=== PATIENT | female | born 1995 | race Caucasian/White ===

== ENCOUNTER 2022-12-01 10:14 | Inpatient (IN) ==
--- NOTE | 2022-12-01 11:36 | History & Physical Report ---
Date of Service December 01, 2022 Assessment & Plan (1) Uterine contractions during : (2) Genital HSV: Plan - Patient admitted to labor and delivery for regular contractions and to rule out/in labor - Patient was evaluated in office this morning and found to be 4/90/-[address] Guerrero - Patient endorses continued contractions at 4 minutes apart w/o loss of fluid - Plan for speculum exam and monitoring to evaluate for labor, will admit if found to be in labor - BP 140/95, continue to monitor - Patient willing to consider augmentation and ROM as indicated - Patient requesting epidural anesthesia for pain management - Labs pending History of Present Illness Chief Complaint: Contractions, ROL Primary Care Provider: Liz Dwyer Subjective: Tanesha is a 27 year old female currently at 40 2 with MALISSA 11/29/22 determined by US who is presenting to L&D for contractions and rule in/out of labor. Complications: Hx of Genital Herpes (started Valtrex @ 36 weeks) Reason for Induction/: Post-date induction schedule 12/08/22 Movement: Yes Fluid Loss/ROM: No Bloody show/discharge: Light bloody discharge since cervix check in office this AM Contractions: Started @ midnight 8-10 min apart, currently 4 minutes apart (per patient) External FHT and uterine monitor: Category 1, tracing reactive, good FHT variability (acels w/o dcels), regular contractions Last OB appointment: 12/01, regular care [employer] Hx: No hx of abnormal paps, Hx of genital herpes (on Valacyclovir) - no current sx (no rash, redness, burning, or itching) Labs: Blood Type: A+ Antibody Screen: Negative Hg/Hct (today): Pending WBC/Plt (today): Pending Rubella: Immune RPR: Non-reactive Gonorrhea: Negative Chlamydia: Negative HIV: Negative HbSAg: Negative GBS: Negative ROS: - Denies fever, chills, sweats - Denies dyspnea or pleuritic pain - Denies chest pain, palpitations, or pressure - Denies breast pain - Denies dysuria - Denies headache or visual changes Allergies Allergy/AdvReac Type Severity Reaction Status Date / Time No Known Allergies Allergy Verified 12/01/22 09:50 Home Medications Medication Instructions Recorded Confirmed Type prenat.vits,jd,jps-dzmz-spool 1 tab PO DAILY 03/21/20 12/01/22 History albuterol sulfate 90 mcg/actuation 1 inh inhalation QID PRN SHORT OF 12/31/21 12/01/22 History aerosol inhaler (Ventolin HFA) BREATH valacyclovir 500 mg tablet 500 mg PO BID #60 tabs 10/21/22 12/01/22 Rx (Valtrex) Patient History Medical History (Updated 12/01/22 @ 11:32 by Bere Morocho, DO) Asthma No inhaler x years Genital HSV Hx Hx of ovarian cyst Miscarriage Surgical History (Updated 04/25/22 @ 10:56 by Jazmín Lira) S/P dilation and curettage [place] teeth removed Family History Other No family history of adverse response to anesthesia Denies family history of Ovarian cancer Breast cancer Colorectal cancer Social History (Updated 04/25/22 @ 10:52 by Jazmín Lira) Smoking Status: Never smoker Second Hand Exposure: No; Hx Alcohol Use: No Hx Substance Use: No Preferred Language: Persian Media Services Director Required: No Beliefs That Will Affect Care: Faith Faith Beliefs: uatsdin marital status: marital status details: Darrell Piedra ([phone] Current Living Situation: Spouse and Family Current Living Situation Comment: darrell- step sons-14 and 11 yo current occupational status: employed 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 No acute distress. Cardiac: Regular rate and rhythm, no murmurs/rubs/gallops. Respiratory: Clear to auscultation bilaterally a/p, no wheezes/rales/rhonchi. No increased work of breathing. Symmetrical chest rise. No respiratory distress. Abdomen: Gravid; reactive FHTs; Position: Vertex by Livan maneuver Pelvic: ERIN -[address] Guerrero Lower Extremities: No lower extremity edema or swelling. No deep calf pain. Susan's negative bilaterally. Results & Data ([facility]) Vital Signs (Past 12 Hours) Vital Signs Pulse BP 12/01/22 11:09 106 H 140/95 Supervising Physician Co-Signing Physician Notes Resident Physician Supervision Note: I interviewed and examined the patient. Discussed with Dr. Morocho and agree with findings and plan as documented in the note. Any exceptions or clarifications are listed here: 27 yo at 40 2/7 wga presents in early labor. Seen in office and 4cm, uncomfortable. Notes ctx are worse and more painful now. Denies s/s HSV outbreak, only had one ever and was in 2019 but denies itching, burning, pain. Mildly elevated BPs but very uncomfortable. SSE w/o HSV lesions on vulva, vagina, cervix. SVE 5/90/-2, cephalic. Will admit for labor, GBS neg, desires epidural Documented By: Sima Reinoso MD Resident Activity Tracking Resident Involvement: Resident Care Provided Care Provided: OB Delivery
[2022-12-01] MEDS ORDERED: OXYTOCIN 30 UNITS/500 ML BAG IV PRN ×2 (11:59→18:04)
[2022-12-01] MEDS ORDERED: LIDOCAINE 1% LOCAL 20 ML VIAL INFIL PRN (11:59)
[2022-12-01] MEDS: LACTATED RINGER'S 1,000 ML IV PRN ×2 (12:25→13:29)
[2022-12-01] MEDS ORDERED: fentaNYL citrate 100 MCG/2 ML VIAL ONE (12:37)
[2022-12-01] MEDS ORDERED: SODIUM CHLORIDE 0.9% INJ 10 ML VIAL ONE (12:37)
[2022-12-01] MEDS ORDERED: ePHEDrine sulfate 50 MG/ML AMP ONE (12:37)
[2022-12-01] MEDS ORDERED: BUPIVACAINE 0.25% 30 ML VIAL ONE (12:37)
[2022-12-01] MEDS ORDERED: LIDOCAINE 2%/EPINEPHRINE 1:200,000 20 ML SDV ONE ×2 (12:37→15:46)
[2022-12-01] MEDS ORDERED: fentaNYL 2MCG/ML ROPIVACAINE 1.25MG/ML 100 ML BAG EPI ONE (12:38)
[2022-12-01 12:40] LABS: Hematocrit (blood only) 40.4 % (37.0-47.0); Hemoglobin 14.1 g/dl (12.0-16.0); Mean Corpuscular Hemoglobin 31.4 pg (25.0-34.0); Mean Corpuscular Hgb Conc 34.9 g/dL (32.0-36.0); Mean Platelet Volume 11.1 fL (9.4-12.4); Platelet Count 215 K/uL (130-400); RDW Coefficient of Variation 14.4 % (11.5-14.5); RDW Standard Deviation 47.7 fL (36.4-46.3); Red Blood Count 4.49 M/uL (4.20-5.40); White Blood Count 10.48 K/ul (4.8-10.8)
[2022-12-01] MEDS ORDERED: ONDANSETRON INJ 2 MG/ML 2 ML VIAL IV PRN (12:43)
[2022-12-01] MEDS ORDERED: diphenhydrAMINE 50 MG/ML VIAL IV PRN (12:43)
[2022-12-01] MEDS ORDERED: NALOXONE HCL 1 MG in SODIUM CHLORIDE 0.9% 1000ML 1,000 ML IV PRN (12:43)
[2022-12-01] MEDS ORDERED: NALBUPHINE HCL INJ 10 MG/ML AMP IV PRN (12:43)
[2022-12-01] MEDS ORDERED: PROMETHAZINE HCL 25 MG in SODIUM CHLORIDE 0.9% 50 ML IV PRN (12:43)
[2022-12-01] MEDS ORDERED: METOCLOPRAMIDE HCL 20 MG in SODIUM CHLORIDE 0.9% 50 ML IV PRN (12:43)
[2022-12-01] MEDS ORDERED: ePHEDrine sulfate 50 MG/ML AMP IV PRN (12:43)
[2022-12-01] MEDS ORDERED: NALOXONE HCL 0.4 MG/1 ML VIAL/CARP IV PRN (12:43)
--- NOTE | 2022-12-01 12:43 | Anesthesiology Consultation ---
Date of Service December 01, 2022 Assessment & Plan Chart Review Chart Review: Acceptable Risk for Labor Epidural Consults Requested none ASA ASA2 Proposed Anesthesia Anesthesia Type: Labor Epidural Risk / Benefits Reviewed With: PT / POA / Parent / Guardian, Accepts Plan and Informed Consent Obtained History Height/Weight Height: 5 ft 3 in Weight: 76.839 kg Allergies Allergy/AdvReac Type Severity Reaction Status Date / Time No Known Allergies Allergy Verified 12/01/22 09:50 Medications Home Medications Medication Instructions Recorded Confirmed Last Taken prenat.vits,jd,omj-paat-saflh 1 tab PO DAILY 03/21/20 12/01/22 12/01/22 08:00 albuterol sulfate 90 mcg/actuation 1 inh inhalation QID PRN SHORT OF 12/31/21 12/01/22 Unknown aerosol inhaler (Ventolin HFA) BREATH valacyclovir 500 mg tablet 500 mg PO BID #60 tabs 10/21/22 12/01/22 12/01/22 08:00 (Valtrex) Active Medications Generic Name Dose Route Start Last Admin Trade Name Freq PRN Reason Stop Dose Admin Lactated Ringer's 1,000 mls @ 125 mls/hr 12/01/22 11:59 12/01/22 12:25 Lr IV 12/03/22 11:58 999 mls/hr .Q8H PRN Administration L&D Protocol Protocol NPO Date Last Intake of Fluids: 12/01/22 Time Last Intake of Fluids: 11:00 Date Last Intake of Solids: 12/01/22 Time Last Intake of Solids: 09:00 Past Medical History Medical History Asthma No inhaler x years Genital HSV Hx Hx of ovarian cyst Miscarriage Exercise / Class Metabolic Activity II 4-5 Yardwork/Stairs/Walk up hill Past Family History Family History Other No family history of adverse response to anesthesia Denies family history of Ovarian cancer Breast cancer Colorectal cancer Past Surgical History Surgical History S/P dilation and curettage [place] teeth removed Past Anesthesia History No Hx of Anesthesia Complications and No Family Hx of Anesthesia Complications History of PONV No Hx of PONV and No Hx of Motion Sickness Social History Smoking Status: Never smoker Hx Alcohol Use: No Hx Substance Use: No substance use type: does not use Physical Exam Vital Signs Last Vital Signs Temp 36.9 C 12/01/22 11:36 Pulse 95 H 12/01/22 11:37 Resp 18 12/01/22 11:36 BP 132/92 12/01/22 11:37 ENMT Mouth: no TMJ abnormality Thyromental Distance: > or= 3.5 Finger Breadths Mallampati Class: II Neck normal visual inspection and trachea midline; neck extension not limited Respiratory normal respiratory effort Auscultation: lungs clear to auscultation bilaterally Cardiovascular Rate/Rhythm: regular rate and regular rhythm Heart Sounds: no murmur Musculoskeletal Spine: normal cervical ROM Extremities: full ROM of extremities Neurologic moves all extremities Psychiatric Orientation: alert and oriented x 3 Testing Laboratory Results 12/01/22 12:17
[2022-12-01 13:07] LABS: Albumin Level 3.7 gm/dl (3.4-5.0); Bilirubin,Total 0.5 mg/dl (0.2-1.0); Calcium 9.5 mg/dl (8.5-10.1); Potassium 3.9 mmol/L (3.5-5.1)
[2022-12-01] MEDS: fentaNYL 2MCG/ML ROPIVACAINE 1.25MG/ML 100 ML BAG EPI PRN ×2 (13:10→16:37)
[2022-12-01 13:13] LABS: Albumin Globulin Ratio 1.2 (0.9-2); BUN Creatinine Ratio 15.5 (10-20); Creatinine Clr Calc Pharmacy 141.7 ml/min; Est GFR (African American) 145.4 ml/min; Est GFR (Non-African American) 125.4 ml/min; Total Protein 6.7 gm/dl (6.0-8.3)
[2022-12-01] MEDS ORDERED: LIDOCAINE 2% LOCAL 20 ML VIAL ONE (15:45)
[2022-12-01] MEDS ORDERED: Nursing to Pharmacy Communication SCH ×3 (16:00)
[2022-12-01] MEDS ORDERED: ceFAZolin 2000MG 2,000 MG/15 ML SYR IV STA (17:37)
--- NOTE | 2022-12-01 18:01 | Delivery Summary ---
Vaginal Delivery Summary Date of Service December 01, 2022 Vaginal Delivery Summary and 2nd Degree LAC PREOPERATIVE DIAGNOSIS: 1. Single intrauterine at 40 2/7 wga 2. Labor 3. Hx HSV POSTOPERATIVE DIAGNOSIS: 1. Single intrauterine at 40 2/7 wga 2. Labor 3. Hx HSV 4. Delivered PROCEDURE: 1. Normal spontaneous vaginal delivery. 2. Manual extraction of placenta SURGEON: Sima Reinoso MD ANESTHESIA: Epidural. ESTIMATED BLOOD LOSS: 300 mL FLUIDS: Continuous LR. URINE OUTPUT: None. COMPLICATIONS: Retained placenta CONDITION: Stable. INDICATIONS: 27 yo at 40 2/7 wga presented this morning with contractions increasing in frequency and intensity. She was found to be 4cm in the office and sent to L&D. She continued to progress and was admitted after negative speculum exam confirming no lesions. She received an epidural for pain control and underwent AROM. She progressed to complete and desired to push. FINDINGS: A viable female , weight pending with Apgars of 8 and 9 at 1 and 5 minutes respectively. SPECIMEN: Cord blood, placenta OPERATIVE REPORT: The patient progressed to 10 cm, 100% effaced and +2 station, pushed over intact perineum with anesthesia to deliver a viable female infant, weight and Apgars as above. Head of delivered in RACHEL position. No nuchal cord was present. Body and shoulders were delivered without difficulty. was delivered to maternal abdomen and nursing staff. Delayed cord clamping was performed for 60 seconds. Cord was clamped and cut. Cord blood was obtained. Umbilical cord was noted to be thin and from the membranes with gentle traction and so did require manual extraction. Placenta was extracted intact with 3-vessel cord. Additional sweep confirmed no remaining products. A dose of ancef was given. IV oxytocin and fundal massage were given for excellent hemostasis. Vagina, cervix, perineum, and placenta were inspected. A second degree laceration was noted and repaired using 3-0 vicryl and made hemostatic. A hemostatic periclitoral abrasion was noted and not needed to be repaired. There was excellent hemostasis. Sponge and needle counts correct x2. No sponges were left behind. Mother and stable in immediate period. [facility] [place]aginal Delivery Charge Vaginal Delivery Codes: 71846 global code for the antepartum, delivery, and post- Delivery Type Details: and 2nd Degree LAC
[2022-12-01] MEDS ORDERED: HYDROCORTISONE ACETATE 25 MG SUPP PR PRN (18:04)
[2022-12-01] MEDS ORDERED: BENZOCAINE 20% AER SPR 82.5 GM CAN EXT PRN (18:04)
[2022-12-01] MEDS ORDERED: ACETAMINOPHEN 325 MG TAB PO PRN (18:04)
[2022-12-01] MEDS ORDERED: ALBUTEROL HFA 8 GM INHALER INH PRN (18:04)
[2022-12-01] MEDS ORDERED: DIPHTHERIA/TETANUS/PERTUSSIS 0.5mL SYR/VIAL (Age 7+yrs) IM ONE (18:04)
[2022-12-01] MEDS ORDERED: bisacodyL 10 MG SUPP PR PRN (18:04)
--- NOTE | 2022-12-01 18:44 | Anesthesia Procedure Note ---
Date of Service December 01, 2022 Anesthesia Post Epidural Note Vital Signs Vital Signs: Temp Pulse Resp BP Pulse Ox 36.9 C 96 H 18 144/87 H 92 12/01/22 11:36 12/01/22 18:42 12/01/22 18:30 12/01/22 18:42 12/01/22 17:14 Notes Mental Status: alert / awake / arousable and participated in evaluation Nausea / Vomiting: adequately controlled Pain: adequately controlled Airway Patency, RR, SpO2: stable & adequate BP & HR: stable & adequate Hydration State: stable & adequate Neuraxial Anesthesia: was administered and sensory block is resolving Anesthetic Complications: no major complications apparent Epidural: Removed without complications and With tip intact
[2022-12-01] MEDS: IBUPROFEN 600 MG TAB PO PRN (19:51)
[2022-12-01] MEDS: DOCUSATE SODIUM 100 MG CAP PO SCH (22:07)
[2022-12-02] MEDS: IBUPROFEN 600 MG TAB PO PRN ×5 (00:07→18:05)
--- NOTE | 2022-12-02 05:03 | Obstetrical Progress Note ---
Date of Service December 02, 2022 Assessment & Plan (1) care following vaginal delivery: (2) Genital HSV: Plan - Overall, feeling well and eating well today - Infant feeding going well without concern - Urinating and passing gas appropriately - Ambulating well in room - Pain controlled w/ Ibuprofen - Hgb 14.1 on 12/01 - Vitals stable and wnl (BP elevated during labor, trending down) - Routine PP care progressing well - Anticipate discharge @ 24-48 hours PP - Recommending f/u outpatient in 6 weeks Admission and Anticipated Discharge Date Admission Date: December 01, 2022 Supervising Physician Co-Signing Physician Notes Resident Physician Supervision Note: I interviewed and examined the patient. Discussed with Dr. Morocho and agree with findings and plan as documented in the note. Any exceptions or clarifications are listed here: PP1 s/p , doing well. BPs were mild range during labor but suspect pain related, had normal labs. BPs improved pp, will continue to monitor. VSS, exam benign and reassuring. Continue routine pp care Documented By: Sima Reinoso MD Subjective Patient is a 27F who is PPD #1 following delivery at 40 2/. She reports feeling well overall this morning. - Ambulation - well throughout room - Voiding/[place] - independent voids, no dysuria or pressure - Gas/Stool - passing gas, no bowel movement - Diet - regular, no nausea or emesis - Lochia - diminishing, heavy amount (when standing) - Feeding Type - breast feeding - Pain Level - 1/10, controlled with Ibuprofen Review of Systems - Denies fever, chills, sweats - Denies shortness of breath, difficulty breathing, chest pain, palpitations, chest pressure. - Denies breast pain. - Denies dysuria. - Denies headache or changes in vision. Physical Exam Physical Exam: General: Alert, oriented. No acute distress. Cardiac: RRR, normal S1/S2, no murmurs/rubs/gallops. Respiratory: Non-labored, CTAB, no wheezes/rales/rhonchi. Symmetric chest rise. Abdomen: Soft, nontender, nondistended. Bowel sounds present. Uterus: Uterine fundus firm, palpable 2 cm below umbilicus. Lower Extremities: No lower extremity edema or swelling. No deep calf pain. Susan's negative bilaterally. Results & Data ([facility]) Vital Signs (Past 12 Hours) Vital Signs Temp Pulse Pulse Resp BP BP Pulse Ox 12/02/22 04:18 36.5 C 78 16 122/73 98 12/02/22 00:20 36.6 C 85 18 137/92 98 12/01/22 20:30 37 C 96 H 16 135/76 98 12/01/22 19:57 36.7 C 18 12/01/22 19:15 36.7 C 18 12/01/22 18:30 18 12/01/22 18:15 18 12/01/22 18:00 18 12/01/22 17:41 18 12/01/22 19:57 99 H 144/91 H 12/01/22 19:52 90 144/87 H 12/01/22 19:47 104 H 143/95 H 12/01/22 19:42 104 H 143/96 H 12/01/22 19:26 88 140/88 12/01/22 19:12 95 H 137/88 12/01/22 18:56 99 H 147/85 H 12/01/22 18:42 96 H 144/87 H 12/01/22 18:27 105 H 161/89 H 12/01/22 18:12 110 H 133/67 12/01/22 18:00 114 H 144/75 H 12/01/22 17:41 100 H 140/75 12/01/22 17:27 111 H 135/74 12/01/22 17:14 160 H 92 12/01/22 17:12 164 H 125/92 12/01/22 17:11 161 H 94 12/01/22 17:07 139 H 90 12/01/22 17:06 141 H 97 O2 Del Method 12/02/22 04:18 Room Air 12/02/22 00:20 Room Air 12/01/22 20:30 Room Air 12/01/22 19:57 12/01/22 19:15 12/01/22 18:30 12/01/22 18:15 12/01/22 18:00 12/01/22 17:41 12/01/22 19:57 12/01/22 19:52 12/01/22 19:47 12/01/22 19:42 12/01/22 19:26 12/01/22 19:12 12/01/22 18:56 12/01/22 18:42 12/01/22 18:27 12/01/22 18:12 12/01/22 18:00 12/01/22 17:41 12/01/22 17:27 12/01/22 17:14 12/01/22 17:12 12/01/22 17:11 12/01/22 17:07 12/01/22 17:06 Resident Activity Tracking Resident Involvement: Resident Care Provided Care Provided: OB Delivery
[2022-12-02] MEDS: DOCUSATE SODIUM 100 MG CAP PO SCH ×2 (08:26→20:19)
[2022-12-02] MEDS: PRENATAL VITAMIN 1 TAB PO SCH (08:26)
[2022-12-02] MEDS ORDERED: bisacodyL 5 MG TABEC PO SCH (20:00)
[2022-12-03] MEDS: IBUPROFEN 600 MG TAB PO PRN ×3 (03:39→12:00)
--- NOTE | 2022-12-03 05:51 | Obstetrical Progress Note ---
Date of Service December 03, 2022 Assessment & Plan (1) care following vaginal delivery: (2) Genital HSV: Plan - Overall, feeling well and eating well today - Infant feeding going well without concern - Urinating and passing gas appropriately - Ambulating well in room - Pain controlled w/ Ibuprofen - Hgb 14.1 on 12/01 - Vitals stable (BP 140s/80s, occasional wnl), BP check in 1 week - Routine PP care progressing well - Anticipate discharge @ 24-48 hours PP - Recommending f/u outpatient in 6 weeks Admission and Anticipated Discharge Date Admission Date: December 01, 2022 Supervising Physician Co-Signing Physician Notes Resident Physician Supervision Note: I interviewed and examined the patient. Discussed with Dr. Morocho and agree with findings and plan as documented in the note. Any exceptions or clarifications are listed here: Doing well. ready for d/c. Has had several 140s/80-low 90s blood pressures. NO s/s pet. Instructions given. Will have a f/u bp check in one week in the office. Documented By: Maggie Guerrero MD, FACOG Subjective Patient is a 27F who is PPD #2 following delivery at 40 2. She reports feeling well overall this morning. - Ambulation - well throughout room - Voiding/[place] - independent voids, no dysuria or pressure - Gas/Stool - passing gas, no bowel movement - Diet - regular, no nausea or emesis - Lochia - diminishing, light amount - Infant Feeding Type - breast feeding - Pain Level - 1/10, controlled with Ibuprofen Review of Systems - Denies fever, chills, sweats - Denies shortness of breath, difficulty breathing, chest pain, palpitations, chest pressure. - Denies breast pain. - Denies dysuria. - Denies headache or changes in vision. Physical Exam Physical Exam: General: Alert, oriented. No acute distress. Cardiac: RRR, normal S1/S2, no murmurs/rubs/gallops. Respiratory: Non-labored, CTAB, no wheezes/rales/rhonchi. Symmetric chest rise. Abdomen: Soft, nontender, nondistended. Bowel sounds present. Uterus: Uterine fundus firm, palpable 2 cm below umbilicus. Lower Extremities: No lower extremity edema or swelling. No deep calf pain. Susan's negative bilaterally. Results & Data ([facility]) Vital Signs (Past 12 Hours) Vital Signs Temp Pulse Resp BP O2 Del Method 12/02/22 23:30 36.8 C 74 16 146/80 H Room Air 12/02/22 19:00 36.8 C 78 18 136/86 Room Air Resident Activity Tracking Resident Involvement: Resident Care Provided Care Provided: OB Delivery
[2022-12-03] MEDS: PRENATAL VITAMIN 1 TAB PO SCH (09:31)
[2022-12-03] MEDS: DOCUSATE SODIUM 100 MG CAP PO SCH (09:31)
== END 2022-12-03 12:45 | disposition home or self-care (01) | DRG 806 ==
LOC: OPB 10:14 → 4S1 10:17 → 4E2 20:42

== ENCOUNTER 2025-08-10 07:45 | Inpatient (IN) ==
[2025-08-10] MEDS ORDERED: LIDOCAINE 1% LOCAL 20 ML VIAL INFIL PRN (07:59)
[2025-08-10] MEDS ORDERED: OXYTOCIN 30 UNITS/NSS 30 UNITS/500 ML BAG IV PRN ×2 (07:59→17:39)
[2025-08-10 08:44] LABS: Hematocrit (blood only) 33.9 % (37.0-47.0); Hemoglobin 11.8 g/dl (12.0-16.0); Mean Corpuscular Hemoglobin 30.3 pg (25.0-34.0); Mean Corpuscular Volume 87.1 fL (80.0-100.0); Platelet Count 220 K/uL (130-400); RDW Standard Deviation 49.9 fL (36.4-46.3); Red Blood Count 3.89 M/uL (4.20-5.40); White Blood Count 8.85 K/ul (4.8-10.8)
--- NOTE | 2025-08-10 08:46 | History & Physical Report ---
Date of Service August 10, 2025 Assessment & Plan (1) Encounter for induction of labor: Plan: 30 yo at 40w5d admitted for IOL. Patient is resting comfortably. Admits to contractions that are irregular. Will order pitocin as well as AROM to help induce labor. Heart tracing is Cat. I. Will continue to monitor. Admission and Anticipated Discharge Date Admission Date: August 10, 2025 History of Present Illness Chief Complaint: IOL Primary Care Provider: Liz Dwyer 30 yo at 40w5d admitted for IOL. Patient admits to irregular contractions, movement, and having regular care. Also reports that during her membrane sweep yesterday she had some bleeding. Denies fluid loss. Does admit to some shortness of breath when going up steps. Most likely due to . Denies fevers/chills/sweats, Headache, CP, LE pain, breast pain, dysuria. GBS neg, RH+ and Delivery Plans HSV Valtrex @ 36 weeks FOB son with CHD echo ~22-24 weeks - declines IOL 08/10/25 Labs Lab Results OB Labs: Blood Type A Positive 12/29/24 Antibody Screen NEGATIVE 12/29/24 Hgb 10.5 g/dl (12.0-16.0) L 06/15/25 Hct 31.5 % (37.0-47.0) L 06/15/25 MCV 86.4 fL (80.0-100.0) 12/29/24 Plt Count 269 K/uL (130-400) 12/29/24 Rubella IgG Antibody Immune (Immune) 12/29/24 RPR Nonreactive (Nonreactive) 04/19/24 Treponema pallidum Ab Negative (Negative) 05/18/25 Hep Bs Antigen Negative (Negative) 12/29/24 Hep Bs Antigen NON-REACTIVE (NON-REACTIVE) 05/01/22 Hepatitis C Antibody Negative (Negative) 12/29/24 Hepatitis C Ab (EIA) NON-REACTIVE (NON-REACTIVE) 05/01/22 HIV 1&2 Ab/P24 Ag 4thGn Negative (Negative) 12/29/24 HIV (1&2) Ag & Ab Conf NON-REACTIVE (NON-REACTIVE) 05/01/22 Glucose 1 Hr 50 gm 110 mg/dl (70-130) 05/18/25 OB Optional Labs: Chlamydia trachomatis RNA Not Detected (NotDetected) 12/29/24 Neisseria gonorrhoeae RNA Not Detected (NotDetected) 12/29/24 Thyroid Stimulating Hormone (TSH) 2.73 uIU/mL (0.30-4.50) 09/12/21 Allergies Allergy/AdvReac Type Severity Reaction Status Date / Time No Known Allergies Allergy Verified 08/09/25 13:21 Home Medications Medication Instructions Recorded Confirmed Type prenat.vits,jd,yne-ejez-pogwu 1 tab PO DAILY 03/21/20 08/10/25 History albuterol sulfate 90 mcg/actuation 1 inh inhalation QID PRN SHORT OF 12/31/21 08/09/25 History aerosol inhaler (Ventolin HFA) BREATH ferrous sulfate PO DAILY 06/01/25 08/09/25 History valacyclovir 500 mg tablet 500 mg PO Q12H #60 tabs 06/29/25 08/10/25 Rx Patient History Medical History (Updated 08/10/25 @ 08:43 by Mihai Perry DO) Asthma Mild - Inhaler PRN Varicella vaccination Missed Hx of ovarian cyst Surgical History S/P dilation and curettage [place] teeth removed Family History Other No family history of adverse response to anesthesia Denies family history of Ovarian cancer Breast cancer Colorectal cancer Social History (Updated 08/10/25 @ 07:59 by Vikki Daley, ROSAS) Smoking Status: Never smoker Second Hand Exposure: No; Do You Dip or Chew Tobacco: No; Hx Alcohol Use: No Hx Substance Use: No Preferred Language: Greenlandic Communication Ability: Effective Visual Impairment: No Limitations Director Of Communications Required: No Beliefs That Will Affect Care: Sabianist Sabianist Beliefs: tenriism marital status: marital status details: Darrell Piedra ([phone] Current Living Situation: Spouse and Family Current Living Situation Comment: Lives with , 2 step children, and daughter. No pets. 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 Date GA wks Lbr Lgth wt Sex Type del Anes Place Del Prov ? Comment 04/01/21 Aborted-Spontaneous 12/31/21 8 Aborted-Spontaneous MAB 12/01/22 40 6lb 15.4oz F Ep idural [facility] Dr. Arleth Flores 05/16/24 Aborted-Spontaneous SAB [employer] History unremarkable Review of Systems as per Subjective HPI Physical Exam Constitutional: WD/WN, vitals as above Eyes: + anicteric sclerae and EOM intact bilat erally Neck: normal visual inspection Respiratory: normal respiratory effort, lungs clear to auscultation Cardiovascular: RRR, no murmur, no edema Extremities: no calf tenderness Gastrointestinal (Abdomen): Percussion/Palpation: abdomen soft; abdomen nontender Skin: no rashes, warm and dry Psychiatric: Eye Contact: good eye contact Speech: normal rate/rhythm/volume of speech Thought Process: goal directed thought process and linear/logical thought process Genitourinary: OB Exam Monitor Tracing: + category I per Dr. Kelley's exam Results & Data Vital Signs (Past 12 Hours) Vital Signs Temp Pulse Resp BP 08/10/25 08:01 36.9 C 105 H 18 128/81 08/10/25 07:57 105 H 128/81 Monitoring External Monitor Baseline: 140 Variability: Moderate Accels: Present Early Decels: None Variable Decels: None Late Decels: None Tocodynamometer irregular interval and duration
[2025-08-10] MEDS: LACTATED RINGER'S 1,000 ML IV PRN (09:08)
[2025-08-10] MEDS: OXYTOCIN 30 UNITS/NSS 30 UNITS/500 ML BAG IV PRN (09:08)
--- NOTE | 2025-08-10 10:58 | Anesthesiology Consultation ---
Date of Service August 10, 2025 Assessment & Plan (1) Encounter for pre-operative examination: Chart Review Chart Review: Acceptable Risk for Labor Epidural History Height/Weight Height: 5 ft 3 in Weight: 75.75 kg Allergies Allergy/AdvReac Type Severity Reaction Status Date / Time No Known Allergies Allergy Verified 08/09/25 13:21 Medications Home Medications Medication Instructions Recorded Confirmed Last Taken prenat.vits,jd,hky-rbcp-iplay 1 tab PO DAILY 03/21/20 08/10/25 08/09/25 albuterol sulfate 90 mcg/actuation 1 inh inhalation QID PRN SHORT OF 12/31/21 08/09/25 Unknown aerosol inhaler (Ventolin HFA) BREATH ferrous sulfate PO DAILY 06/01/25 08/09/25 08/09/25 valacyclovir 500 mg tablet 500 mg PO Q12H #60 tabs 06/29/25 08/10/25 08/10/25 Active Medications Generic Name Dose Route Start Last Admin Trade Name Freq PRN Reason Stop Dose Admin Lactated Ringer's 1,000 mls @ 125 mls/hr 08/10/25 07:59 08/10/25 09:08 Lr IV 08/12/25 07:58 125 mls/hr .Q8H PRN Administration L&D Protocol Protocol Oxytocin 30 units in 500 mls @ 6 mls/hr 08/10/25 08:03 08/10/25 10:20 Pitocin 30 Units/Nss IV 08/12/25 08:02 0.36 units/hr .Q24H PRN 6 mls/hr Labor Induction/Augmentation Titration Protocol 0.36 UNITS/HR Past Medical History Medical History Asthma Mild - Inhaler PRN Varicella vaccination Missed Hx of ovarian cyst Past Family History Family History Other No family history of adverse response to anesthesia Denies family history of Ovarian cancer Breast cancer Colorectal cancer Past Surgical History Surgical History S/P dilation and curettage [place] teeth removed Social History Smoking Status: Never smoker Do You Dip or Chew Tobacco: No Hx Alcohol Use: No Hx Substance Use: No substance use type: does not use Physical Exam Vital Signs Last Vital Signs Temp 36.9 C 08/10/25 08:01 Pulse 73 08/10/25 10:54 Resp 18 08/10/25 08:01 BP 140/87 08/10/25 10:54 Pulse Ox 100 08/10/25 10:54 Testing Laboratory Results 08/10/25 08:11
[2025-08-10] MEDS: BUPIVACAINE 0.25% PF 30 ML VIAL ONE (11:23)
[2025-08-10] MEDS: LIDOCAINE 2%/EPINEPHRINE 1:200,000 20 ML PF ONE (11:27)
[2025-08-10] MEDS: fentANYL 2 MCG/ML BUPIVacaine 0.125%-NSS 100ML BAG ONE (11:27)
[2025-08-10] MEDS ORDERED: fentANYL 2 MCG/ML BUPIVacaine 0.125%-NSS 100ML BAG EPI PRN (11:30)
[2025-08-10] MEDS ORDERED: BUPIVACAINE 0.25% PF 30 ML VIAL EPI PRN (11:30)
[2025-08-10] MEDS ORDERED: ROPIVACAINE 0.5% PF 5 MG/ML 20 ML VIAL EPI PRN (11:30)
[2025-08-10] MEDS ORDERED: ONDANSETRON INJ 2 MG/ML 2 ML VIAL IV PRN (11:30)
[2025-08-10] MEDS ORDERED: SODIUM CHLORIDE 0.9% PF INJ 10 ML VIAL EPI PRN (11:30)
[2025-08-10] MEDS ORDERED: LIDOCAINE 2% MPF LOCAL 5 ML VIAL EPI PRN (11:30)
[2025-08-10] MEDS ORDERED: NALOXONE HCL 1 MG in SODIUM CHLORIDE 0.9% 1,000 ML IV PRN (11:30)
[2025-08-10] MEDS ORDERED: NALOXONE HCL 0.4 MG/1 ML VIAL/CARP IV PRN (11:30)
[2025-08-10] MEDS: SODIUM CHLORIDE 0.9% PF INJ 10 ML VIAL ONE (12:31)
[2025-08-10] MEDS: SODIUM CHLORIDE 0.9% PF INJ 10 ML VIAL EPI STA (12:33)
[2025-08-10] MEDS: BUPIVACAINE 0.25% PF 30 ML VIAL EPI STA (12:33)
[2025-08-10] MEDS: LIDOCAINE 2%/EPINEPHRINE 1:200,000 20 ML PF EPI STA (12:33)
[2025-08-10] MEDS ORDERED: NURSING L&D Epidural Breakthrough Pain Update ONE (15:22)
[2025-08-10] MEDS ORDERED: ROPIVACAINE 0.5% 5 MG/ML 30 ML VIAL ONE (15:50)
[2025-08-10] MEDS ORDERED: LIDOCAINE 2%/EPINEPHRINE 1:200,000 20 ML PF ONE (15:50)
--- NOTE | 2025-08-10 15:54 | Anesthesia Procedure Note ---
Date of Service August 10, 2025 Anesthesia Epidural Re-Dose Vital Signs Temp Pulse Resp BP Pulse Ox 37.0 C 104 H 16 116/61 100 08/10/25 14:14 08/10/25 15:49 08/10/25 15:30 08/10/25 15:46 08/10/25 15:49 Notes Pain Intensity: 3 Dilatation (cm): 3.0 Effacement (%): 75 Called by nursing to evaluate epidural as the patient is having increased pain. The epidural was re-dosed with the following medications (all medications via epidural route) after negative aspiration of the epidural catheter for CSF/HEME 1.2% lidocaine and 0.2% ropivacaine 6ml After Epidural Re-Dose Mental Status: alert / awake / arousable Pain: improving with treatment Airway Patency, RR, SpO2: stable & adequate BP & HR: stable & adequate
--- NOTE | 2025-08-10 17:20 | Delivery Summary ---
Vaginal Delivery Summary Date of Service August 10, 2025 Vaginal Delivery Summary DIAGNOSES: 1. Blanco intrauterine at 40w5d gestation. 2. Induction of Labor. 3. Group B Streptococcus Neg. PROCEDURE: Spontaneous vaginal delivery without laceration. SURGEON: Racheal Kelley MD. BUYER PLANNER: None. QUANTITATIVE BLOOD LOSS: 52 mL. COMPLICATIONS: None. PLACENTA: Spontaneous and intact with a 3-vessel cord. DISPOSITION: Stable to labor and delivery. DESCRIPTION: The patient pushed well and brought the head to in OA position. The 's head was allowed to deliver with contraction force and no further active pushing, with the perineum protected during this time. There was a tight nuchal cord which was clamped and cut on the perineum. The right shoulder was anterior. The shoulders and body delivered without any difficulty, and the was placed on the maternal abdomen. It was vigorous and moving all extremities, and making respiratory efforts. The placenta delivered spontaneously and was noted to be intact and with a 3VC. The cervix, vagina and perineum were examined and were found to be without defect requiring repair. The fundus was firm and lochia minimal immediately after delivery. [facility] Vaginal Delivery Charge Vaginal Delivery Codes: 30720 global code for the antepartum, delivery, and post-
[2025-08-10] MEDS ORDERED: HYDROCORTISONE ACETATE 25 MG SUPP PR PRN (17:39)
[2025-08-10] MEDS ORDERED: ALBUTEROL HFA 8 GM INHALER INH PRN (17:39)
--- NOTE | 2025-08-10 17:55 | Anesthesia Procedure Note ---
Date of Service August 10, 2025 Anesthesia Post Epidural Note Vital Signs Vital Signs: Temp Pulse Resp BP Pulse Ox 36.8 C 82 18 146/98 H 100 08/10/25 15:58 08/10/25 17:49 08/10/25 17:15 08/10/25 17:49 08/10/25 16:54 Pain Intensity Left Abdomen: Pain Intensity: 0 Notes Mental Status: alert / awake / arousable and participated in evaluation Nausea / Vomiting: adequately controlled Pain: adequately controlled Airway Patency, RR, SpO2: stable & adequate BP & HR: stable & adequate Hydration State: stable & adequate Neuraxial Anesthesia: was administered and sensory block is resolving Anesthetic Complications: no major complications apparent Epidural: Removed without complications and With tip intact
[2025-08-10] MEDS: BENZOCAINE 20% SPRY 85 APPLN/85 GM CAN EXT PRN (19:43)
[2025-08-10] MEDS: IBUPROFEN 600 MG TAB PO PRN (19:44)
[2025-08-10] MEDS: DOCUSATE SODIUM 100 MG CAP PO SCH (21:20)
[2025-08-10] MEDS: ACETAMINOPHEN 325 MG TAB PO PRN (22:22)
[2025-08-11 03:21] VITALS: O2SAT 99
--- NOTE | 2025-08-11 05:53 | Obstetrical Progress Note ---
Date of Service August 11, 2025 Assessment & Plan (1) care and examination: Plan: 30 yo post- day 1 s/p [] Fells well today. Vital signs stable Continue post- care Pain controlled with ibuprofen and Tylenol Hgb stable Use rescue inhaler if having acute asthma exacerbation Discharge home today. (2) Asthma: Admission and Anticipated Discharge Date Admission Date: August 10, 2025 Subjective 30 yo post- day 1 s/p [] Ambulation: ambulating normally Voiding: no voiding problems Passing Gas:: Yes Diet Tolerance:: regular diet Feeding Type:: breast feeding Current Pain Level: 3/10 cramping like pain. Pain is controlled with motrin and tylenol. Resting comfortably this AM in NAD. Denies fevers/chills, KNOWLES, CP/palp, SOB/cough/wheezing, N/V, LE pain, breast pain/dschrg, UTI Sx. Review of Systems Review of Systems: as per Subjective HPI Physical Exam Constitutional: WD/WN, vitals as above Eyes: + anicteric sclerae and EOM intact bilat erally Neck: normal visual inspection Respiratory: normal respiratory effort, lungs clear to auscultation Cardiovascular: RRR, no murmur, no edema Extremities: no calf tenderness Gastrointestinal (Abdomen): Percussion/Palpation: abdomen soft; abdomen nontender Skin: no rashes, warm and dry Psychiatric: Eye Contact: good eye contact Speech: normal rate/rhythm/volume of speech Thought Process: goal directed thought process and linear/logical thought process Genitourinary: uterus @ level of umbilicus Results & Data Vital Signs (Past 12 Hours) Vital Signs Temp Pulse Pulse Resp BP BP Pulse Ox 08/11/25 03:05 36.5 C 74 18 124/84 99 08/10/25 23:10 36.8 C 66 16 109/70 98 08/10/25 20:40 36.8 C 86 16 121/84 99 08/10/25 20:00 36.9 C 18 08/10/25 19:04 93 H 132/89 08/10/25 18:49 90 134/83 08/10/25 18:34 79 137/80 08/10/25 18:19 80 137/79 08/10/25 18:04 78 151/83 H 08/10/25 18:00 20 O2 Del Method 08/11/25 03:05 Room Air 08/10/25 23:10 Room Air 08/10/25 20:40 Room Air 08/10/25 20:00 08/10/25 19:04 08/10/25 18:49 08/10/25 18:34 08/10/25 18:19 08/10/25 18:04 08/10/25 18:00 Laboratory Results Lab Results 08/10/25 Range/Units 08:11 WBC 8.85 (4.8-10.8) K/ul RBC 3.89 L (4.20-5.40) M/uL Hgb 11.8 L (12.0-16.0) g/dl Hct 33.9 L (37.0-47.0) % MCV 87.1 (80.0-100.0) fL MCH 30.3 (25.0-34.0) pg MCHC 34.8 (32.0-36.0) g/dL RDW Std Deviation 49.9 H (36.4-46.3) fL RDW Coeff of Summer 15.7 H (11.5-14.5) % Plt Count 220 (130-400) K/uL MPV 10.8 (9.4-12.4) fL Treponema pallidum Ab Negative (Negative)
[2025-08-11 06:27] LABS: Hematocrit (blood only) 33.7 % (37.0-47.0); Hemoglobin 11.6 g/dl (12.0-16.0); Mean Corpuscular Hemoglobin 30.3 pg (25.0-34.0); Mean Corpuscular Volume 88.0 fL (80.0-100.0); Platelet Count 192 K/uL (130-400); RDW Standard Deviation 51.0 fL (36.4-46.3); Red Blood Count 3.83 M/uL (4.20-5.40); White Blood Count 11.96 K/ul (4.8-10.8)
[2025-08-11] MEDS: PRENATAL VITAMIN 1 TAB PO SCH (08:05)
[2025-08-11] MEDS: DIPHTHER/TETAN/PERTUS Vaccine (Tdap, Adol/Adult) 0.5mL IM ONE (08:56)
[2025-08-11 16:44] VITALS: BP 123/84; PULSE 66; RESP 22; TEMP 97.9
== END 2025-08-11 18:15 | disposition home or self-care (01) | DRG 807 ==
LOC: 4S1 07:45 → 4E2 20:41
DX: O99.513 Diseases of the respiratory system complicating pregnancy, third trimester; Z3A.40 40 weeks gestation of pregnancy; Z37.0 Single live birth; O69.81X0 Labor and delivery complicated by cord around neck, without compression, not applicable or unspecified